=== PATIENT | female | born 1950 | race African-American/Black ===

== ENCOUNTER 2018-08-06 07:49 | Outpatient (CLI) | payer BC | END 2018-08-06 23:59 | disposition home or self-care (01) | LOC: D.MAMMO 07:49 | DX: Z12.31 Encounter for screening mammogram for malignant neoplasm of breast (principal) ==

== ENCOUNTER 2018-09-07 08:00 | Outpatient (CLI) | payer BC | END 2018-09-07 09:00 | disposition home or self-care (01) | LOC: D.MAMMO 08:00 | DX: R92.8 Other abnormal and inconclusive findings on diagnostic imaging of breast (principal) ==

== ENCOUNTER 2018-10-07 13:16 | Inpatient (IN) | payer MEDICARE, BC ==
[~2018-10-07] VITALS: Ht 167.6 cm; Wt 96.6 kg
[2018-10-07] MEDS ORDERED: NORVASC5 MG PO (14:13)
[2018-10-07] MEDS ORDERED: PRAVACHOL40 MG PO (14:14)
[2018-10-07] MEDS ORDERED: GLUCOPHAGE500 MG PO (14:15)
[2018-10-07] MEDS ORDERED: ARTHROTEC EC 71 EACH PO (14:17)
[2018-10-07 14:37] VITALS: BP 121/67
[2018-10-07 15:36] LABS: ANION GAP 14.4 mmol/L (8-16); CARBON DIOXIDE 26.4 mmol/L (21.0-32.0); CREATININE - SERUM 1.2 mg/dL (0.6-1.3); POTASSIUM - SERUM 3.8 mmol/L (3.5-5.1)
[2018-10-07 15:37] LABS: HEMATOCRIT 37.2 % (36.0-48.0); HEMOGLOBIN 12.9 g/dL (12-16); MCH 29.3 pg (26.0-34.0); MCHC 34.7 g/dL (31.0-37.0); MCV 84.4 fL (80.0-100.0); MEAN PLATELET VOLUME 9.5 fL (7.4-10.4); PLATELET COUNT 231 10x3/uL (130-400); RBC 4.41 10x6/uL (4.00-5.40); RDW 13.5 % (11.5-14.5); WBC 28.6 10x3/uL (4.8-10.8)
[2018-10-07 16:03] LABS: LYMPHOCYTES 10 % (15-50); MONOCYTES 9 % (2-11); NEUTROPHILS 79 % (40-80); PLATELET ESTIMATE NORMAL
--- NOTE | 2018-10-07 17:10 | HP ---
PATIENT: CECILY GANT MEDICAL RECORD: [id number] ACCOUNT: [id number] LOCATION:D.MS [id number] : 52 ADMISSION DATE: 10/07/18 PCP: CATINA KIRK MD HISTORY AND PHYSICAL EXAMINATION REASON FOR ADMISSION: Cough, fever, and chest pain. HISTORY OF PRESENT ILLNESS: The patient is a 68-year-old -[place] female with type 2 diabetes mellitus. She states about 4 days ago, she had onset of fever and cough. Cough has now been productive. She developing bilateral posterior back pain. No hemoptysis, mildly dyspnea on exertion. She is a nonsmoker and says she has not had night sweats. She came to the office and was noted to be febrile with temperature of 102.4, heart rate 131 beats per minute. Chest x-ray showing a right lower lobe infiltrate. She is now admitted for inpatient IV fluids, antibiotics, and pulmonary toilet. PAST MEDICAL HISTORY: Essential hypertension, postmenopausal, hyperlipidemia, osteoarthritis, type 2 diabetes mellitus. SURGICAL HISTORY: Hysterectomy, bilateral oophorectomy. ALLERGIES: None mentioned. FAMILY HISTORY: Father at 79 and cancer of the lung due to smoking. Mother at 97 due to her dementia. One sister in good health. SOCIAL HISTORY: She is . 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 She is a nonsmoker and nondrinker lifelong. Her is employed at [employer]. She did have flu vaccine and has had pneumonia vaccine in the past. CURRENT MEDICATIONS: Diclofenac 75 mg p.o. b.i.d. p.c., metformin 500 mg p.o. at bedtime, pravastatin 40 mg at bedtime, amlodipine 10, benazepril 20 one tablet in the morning. REVIEW OF SYSTEMS: CONSTITUTIONAL: Fatigue with fever for the last 4 days and poor appetite. HEENT: No recent visual change, sinus congestion, sore throat, or hearing difficulty. RESPIRATORY: Cough, now productive of yellow-green sputum, pleuritic type chest pain in her right upper and lower back for the last 4 days. She has mild short of breath on exertion, but not at rest. GASTROINTESTINAL: No nausea, vomiting, change in stools or blood per rectum. GENITOURINARY: No incontinence. GYNECOLOGIC: No vaginal bleeding. ENDOCRINE: Denies polyuria, polydipsia, heat or cold intolerance. NEUROLOGIC: No history of stroke, TIA, or vascular headaches or seizures. PHYSICAL EXAMINATION: VITAL SIGNS: Temperature of 102.4 orally. Heart rate 131 and regular, respirations were 20, blood pressure 130/80, sats 91% on room air. GENERAL: The patient feels mildly ill. She is not tachypneic. HEENT: Eyes are clear. Oropharynx unremarkable except for dry mucous membranes. NECK: Supple, without bruits or masses. CHEST: Clear throughout. HISTORY AND PHYSICAL [id number] CECILY GANT HEART: Tachycardic without murmur. ABDOMEN: Soft and nontender. PELVIC: Deferred. EXTREMITIES: No CC&E. Minimal crepitus in both knees with extension and flexion. NEUROLOGICAL: Oriented to person, place, and time. Cranial nerves intact. No motor or sensory deficits. Gait was not tested. LABORATORY DATA: Flu swab was negative. Lab is currently pending. IMAGING: Chest x-ray shows right lower lobe patchy density. ASSESSMENT: Right lower lobe community-acquired pneumonia, digital hypertension, tachycardia due to fever, diabetes mellitus, osteoarthritis, postmenopausal. PLAN: The patient will be admitted for IV antibiotics, IV fluids, pulmonary toilet updrafts and blood cultures. TRANSINT:[id number] Voice Confirmation ID: [id number] DOCUMENT ID: [id number] CATINA KIRK MD at 1710 CC: [id number] DICTATION DATE: 10/07/18 1300 DESTINATION SIGN REPAIRER: 10/07/18 1340 [place] [address]
[2018-10-07 17:21] LABS: APPEARANCE CLEAR (CLEAR); BILIRUBIN NEGATIVE (NEGATIVE); COLOR YELLOW (YELLOW); GLUCOSE 100 mg/dL (NEGATIVE); KETONE NEGATIVE (NEGATIVE); NITRITE NEGATIVE (NEGATIVE); PROTEIN 2+ mg/dL (NEGATIVE); UROBILINOGEN NORMAL (NORMAL)
[2018-10-07 17:22] LABS: BACTERIA MANY /hpf (NONE SEEN); EPITHELIAL CELLS OCC /hpf (0-5); MUCUS <1+ /lpf (NONE SEEN); RED CELLS - URINE 0-5 /hpf (0-5)
[2018-10-07 17:23] LABS: AMORPHOUS SEDIMENT <1+ /lpf (NONE SEEN)
--- NOTE | 2018-10-07 19:00 | NUR ---
PT IN BED IN LOW FOWLERS POSITION. FAMILY MEMBER AT BEDSIDE. ALERT AND ORIENTED X4. RESPIRATIONS EVEN AND UNLABORED. VITAL SIGNS STABLE AND AFEBRILE. NO VISUAL CUES OF DISTRESS NOTED. DENIES ANY OTHER NEEDS AT THIS TIME. BED LOW. SIDE RAILS UP X2. CALL LIGHT IN REACH. WILL CONTINUE TO MONITOR.
[2018-10-07 21:20] VITALS: BP 116/53
[2018-10-08 00:30] VITALS: BP 102/48
[2018-10-08 05:45] VITALS: BP 118/69
[2018-10-08 05:57] LABS: BASOPHILS 0.1 % (0-2); EOSINOPHILS 0.2 % (0-7); HEMATOCRIT 34.5 % (36.0-48.0); HEMOGLOBIN 11.7 g/dL (12-16); IMMATURE GRANULOCYTES 0.9 % (0-5); LYMPHOCYTES 10.4 % (15-50); MCH 28.5 pg (26.0-34.0); MCHC 33.9 g/dL (31.0-37.0); MCV 84.1 fL (80.0-100.0); MEAN PLATELET VOLUME 9.8 fL (7.4-10.4); MONOCYTES 9.1 % (2-11); NEUTROPHILS 79.3 % (40-80); PLATELET COUNT 233 10x3/uL (130-400); RDW 13.8 % (11.5-14.5)
[2018-10-08 06:03] LABS: WBC 19.9 10x3/uL (4.8-10.8)
[2018-10-08 06:29] LABS: ALBUMIN 2.4 g/dL (3.4-5.0); ANION GAP 13.7 mmol/L (8-16); BILIRUBIN - TOTAL 0.87 mg/dL (0.2-1.3); CALCIUM 8.6 mg/dL (8.5-10.1); CARBON DIOXIDE 23.4 mmol/L (21.0-32.0); CREATININE - SERUM 1.2 mg/dL (0.6-1.3); PROTEIN - SERUM 6.6 g/dL (6.4-8.2)
[2018-10-08 06:37] LABS: POTASSIUM - SERUM 3.1 mmol/L (3.5-5.1)
--- NOTE | 2018-10-08 10:49 | NUR ---
PATIENT UP AND IN BATHROOM TAKING BED BATH, SKIN W/D TO TOUCH. AT BEDSIDE. DENIES ANY C/O PAIN OR DISCOMFORT WHEN ASKED.
--- NOTE | 2018-10-08 11:25 | NUR ---
PATIENT BLOOD SUGAR CHECKED AND 222 4 UNITS INSULIN GIVEN IN RIGHT BACK ARM FRIENT AT BEDSIDE. C/L WITHIN REACH AND SR'S UP X'S 2.
[2018-10-08 12:45] VITALS: BP 116/74
[2018-10-08 12:50] VITALS: Ht 167.6 cm; Wt 96.6 kg
[2018-10-08 12:54] VITALS: BP 115/72
[2018-10-08 13:22] LABS: ANION GAP 11.6 mmol/L (8-16); CALCIUM 8.7 mg/dL (8.5-10.1); CARBON DIOXIDE 28.3 mmol/L (21.0-32.0); CREATININE - SERUM 1.1 mg/dL (0.6-1.3)
[2018-10-08 13:25] LABS: POTASSIUM - SERUM 3.9 mmol/L (3.5-5.1)
[2018-10-08 16:57] VITALS: BP 99/62
--- NOTE | 2018-10-08 20:10 | NUR ---
A&O X 3, AT BS. FSBS 137. REPORTED LOOSE BM AT 1999. ABDOMINAL PAIN REPORTED. ABDOMEN SOFT, NON TENDER TO PALPATION. BOWEL SOUNDS HYPERACTIVE X 4. ENCOURAGED FLUIDS, PT NODDED IN AGREEMENT. NO REPORT OF CHEST PAIN, LUNG SOUNDS ARE FAINT, BUT CLEAR. ENCOURAGED PT TO AMBULATE FREQUENTLY TOLERATED, CHANGE POSITIONS IN BED FREQUENTLY (1-2 HOURS) WHILE LYING DOWN, DEEP BREATHING INCREASING TOLERATED, AND COUGHING TO INPROVE RESPIRATORY STATUS.
[2018-10-08 20:25] VITALS: BP 102/63
[2018-10-09 00:14] VITALS: BP 121/74
--- NOTE | 2018-10-09 01:13 | NUR ---
Patient in bed resting with no s/s of distress resprations even and unlabored call light in reach family at bedside.
[2018-10-09 04:19] VITALS: BP 127/73
[2018-10-09 05:17] LABS: BASOPHILS 0.3 % (0-2); EOSINOPHILS 1.7 % (0-7); HEMATOCRIT 30.3 % (36.0-48.0); HEMOGLOBIN 10.1 g/dL (12-16); LYMPHOCYTES 21.9 % (15-50); MCH 28.3 pg (26.0-34.0); MCHC 33.3 g/dL (31.0-37.0); MCV 84.9 fL (80.0-100.0); MEAN PLATELET VOLUME 9.5 fL (7.4-10.4); MONOCYTES 12.1 % (2-11); PLATELET COUNT 257 10x3/uL (130-400); RBC 3.57 10x6/uL (4.00-5.40); RDW 13.7 % (11.5-14.5)
[2018-10-09 05:25] LABS: WBC 9.8 10x3/uL (4.8-10.8)
[2018-10-09 05:33] LABS: ANION GAP 15.3 mmol/L (8-16); CALCIUM 8.5 mg/dL (8.5-10.1)
[2018-10-09 05:43] LABS: POTASSIUM - SERUM 3.3 mmol/L (3.5-5.1)
[2018-10-09 08:45] VITALS: BP 154/73
[2018-10-09 12:45] VITALS: BP 138/78
--- NOTE | 2018-10-09 13:23 | NUR ---
SPECTRAL SCIENTIST NOTE-NO COMPLAINTS AT PRESENT. STATES IS FEELING BETTER THIS SHIFT. IS WANTING TO GO HOME IF POSSIBLE. WILL AWAIT DOC TO MAKE ROUNDS. CALL LIGHT IN REACH
[2018-10-09 16:00] VITALS: BP 138/80
--- NOTE | 2018-10-09 19:45 | NUR ---
RECEIVED REPORT, ASSUMED CARE, DENIES NEEDS, FAMILY AT BEDSIDE, CALL LIGHT IN REACH, NO S/S OF DISTRESS NOTED, BED LOWEST POSITION, PAGED DR JAY FOR COUGH SYRUP, PT STATES SHE CAN'T STOP COUGHING, WILL CONTINUE POC
[2018-10-09 20:00] VITALS: BP 134/70
[2018-10-10] VITALS: BP 130/67; BP 151/70
[2018-10-10 03:00] VITALS: BP 128/59
--- NOTE | 2018-10-10 04:01 | NUR ---
PT RESTING QUIETLY, EYES CLOSED. RESP EVEN, UNLABORED. NO DISTRESS NOTED. AGREE WITH INDUCTION HEATING EQUIPMENT SETTER'S ASSESSMENT, CONTINUE PLAN OF CARE.
--- NOTE | 2018-10-10 08:16 | NUR ---
PT AAOX4 RESP EVEN AND NONLABORED, NO SIGNS OF DISTRESS NOTED, FAMILY AT BEDSIDE, NO QUESTIONS/CONCERNS EXPRESSED, CL IN REACH
[2018-10-10 08:37] VITALS: BP 147/97
[2018-10-10 12:30] VITALS: BP 165/89
--- NOTE | 2018-10-10 13:51 | NUR ---
PATIENT SITTING UP IN CHAIR WITH NO COMPLAINTS AT THIS TIME. DENIES ANY NEEDS OR CONCERNS. IV INTACT. CALL LIGHT WITHIN REACH.
[2018-10-10 16:50] VITALS: BP 162/87
--- NOTE | 2018-10-10 17:58 | NUR ---
PT AAOX4 RESP EVEN AND NONLABORED, NO SIGNS OF DISTRESS NOTED, FAMILY AT BEDSIDE CL IN REACH
--- NOTE | 2018-10-10 19:25 | NUR ---
RECEIVED REPROT, ASSUMED CARE, A&O, FAMILY AT BEDSIDE, DENIES NEEDS, BED LOWEST POSITION, CALL LIGHT IN REACH, NO S/S OF DISTRESS NOTED, WILL CONTINUE POC
[2018-10-10 20:00] VITALS: BP 154/92
--- NOTE | 2018-10-10 20:30 | NUR ---
PT AND FAMILY WALKING AROUND UNIT, NO S/S OF DISTRESS NOTED
[2018-10-11] VITALS: BP 156/86
[2018-10-11 03:00] VITALS: BP 119/61
--- NOTE | 2018-10-11 03:40 | NUR ---
AWAKE. LYING IN BED. DENIES NEEDS. NO DISTRESS. CL IN REACH.
--- NOTE | 2018-10-11 07:56 | NUR ---
PT AAOX4 RESP EVEN AND NONLABORED, NO SIGNS OF DISTRESS NOTED, REQUSTING SOME ICE WATER BROUGHT TO PT AT THIS TIME, CL IN REACH
[2018-10-11 08:24] VITALS: BP 181/90
[2018-10-11 12:30] VITALS: BP 130/73; BP 147/87
[2018-10-11 16:30] VITALS: BP 166/92
--- NOTE | 2018-10-11 18:46 | NUR ---
LINOLEUM PRINTER NOTE: AAOX4. O2 SATS 97%. NO SOB. NO S/S OF ACUTE DISTRESS. CL IN PLACE.
[2018-10-11 20:00] VITALS: BP 159/76
[2018-10-12] VITALS: BP 148/67
[2018-10-12 03:00] VITALS: BP 130/56
[2018-10-12] MEDS ORDERED: ZITHROMAX250 MG PO (07:38)
[2018-10-12] MEDS ORDERED: GLUCOPHAGE500 MG PO (07:39)
[2018-10-12] MEDS ORDERED: ROBITUSSIN DM 110 ML PO (07:40)
[2018-10-12] MEDS ORDERED: LEVAQUIN750 MG PO (07:41)
--- NOTE | 2018-10-12 08:10 | NUR ---
PT SITTING UP ON SIDE OF BED. NO ACUTE DISTRESS NOTED. REPORTS PAIN 5/10 AT THIS TIME, TO BACK AREA. SALINE LOCK TO RIGHT FOREARM INTACT. SITE WITHOUT REDNESS OR EDEMA. PT DENIES FURTHER NEEDS AT THIS TIME. CL WITHIN REACH. ENCOURAGED TO CALL WITH NEEDS. WILL CONTINUE TO MONITOR.
[2018-10-12 08:28] VITALS: BP 165/84
--- NOTE | 2018-10-12 09:13 | MORECARE ---
CASE MANAGEMENT DISCHARGE SUMMARY PATIENT: CECILY GANT KAYLIN UNIT: [id number] ADM DATE: 10/07/18 AGE: 68 : 51 SEX: F ROOM/BED: D.2233 AUTHOR: JENNY RODARTE PHYSICIAN: REFERRING PHYSICIAN: CATINA DANIELS MD DATE OF SERVICE: 10/12/18 Discharge Plan Patient Name: CECILY GANT Facility: [facility]:[place] : 1950 Planned Disposition: Home Anticipated Discharge Date: 10/12/18 Discharge Date: Expected LOS: 5 Initial Reviewer: [email or web address] Initial Review Date: 10/12/2018 Generated: 10/12/18 10:13 am Comments DCP- Discharge Planning Updated by [email or web address]: Hollie Rodriguez on 10/12/18 8:[address] Patient Name: CECILY GANT Admission Status: Urgent Accout number: [id number] Admission Date: 10-07-2018 : 1950 Admission Diagnosis:COUGH Attending: CATINA DANIELS Current LOS: 5 Anticipated DC Date: 10-12-2018 Planned Disposition: Home Primary Insurance: MEDICARE PART A ONLY Discharge Planning Comments: CM met with patient to discuss discharge planning, she is alone in the room. States she lives with her . States she is independent with all ADL's and IADL's. States she does not have or need any DME or HHS. States her will take her home today on discharge. No needs identified. CM will continue to follow and assist with discharge planning/needs. Telephony Engineer: Hollie Rodriguez DCPIA - Discharge Planning Initial Assessment Updated by [email or web address]: Hollie Rodriguez on 10/12/18 9:11 am * Is the patient Alert and Oriented? Yes * How many steps to enter\exit or inside your home? few/0 * PCP Dr. Daniels * [facility] [address] * Preadmission Environment Home with Family * ADLs Independent * Equipment None * List name and contact numbers for known caregivers / representatives who currently or will assist patient after discharge: [facility] - [phone] * Verbal permission to speak to the caregivers and representatives has been obtained from the patient. Yes * Community resources currently utilized None * Additional services required to return to the preadmission environment? No * Can the patient safely return to the preadmission environment? Yes * Has this patient been hospitalized within the prior 30 days at any hospital? 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
--- NOTE | 2018-10-12 09:45 | NUR ---
SALINE LOC D/C'D FROM RIGHT FOREARM, PENDING D/C. CATH TIP INTACT. PT SHAVONNE WELL
--- NOTE | 2018-10-13 12:13 | MORECARE ---
CASE MANAGEMENT DISCHARGE SUMMARY PATIENT: CECILY GANT KAYLIN UNIT: [id number] ADM DATE: 10/07/18 AGE: 68 : 51 SEX: F ROOM/BED: D.2233 AUTHOR: JENNY RODARTE PHYSICIAN: REFERRING PHYSICIAN: CATINA DANIELS MD DATE OF SERVICE: 10/13/18 Discharge Plan Patient Name: CECILY GANT Facility: [facility]:[place] : 1950 Planned Disposition: Home Anticipated Discharge Date: 10/12/18 Discharge Date: 10/12/2018 Expected LOS: 5 Initial Reviewer: [email or web address] Initial Review Date: 10/12/2018 Generated: 10/13/18 1:13 pm Comments DCP- Discharge Planning Updated by [email or web address]: Hollie Rodriguez on 10/12/18 8:[address] Patient Name: CECILY GANT Admission Status: Urgent Accout number: [id number] Admission Date: 10-07-2018 : 1950 Admission Diagnosis:COUGH Attending: CATINA DANIELS Current LOS: 5 Anticipated DC Date: 10-12-2018 Planned Disposition: Home Primary Insurance: MEDICARE PART A ONLY Discharge Planning Comments: CM met with patient to discuss discharge planning, she is alone in the room. States she lives with her . States she is independent with all ADL's and IADL's. States she does not have or need any DME or HHS. States her will take her home today on discharge. No needs identified. CM will continue to follow and assist with discharge planning/needs. Orthopedic Physician Assistant: Hollie Rodriguez DCPIA - Discharge Planning Initial Assessment Updated by [email or web address]: Hollie Rodriguez on 10/12/18 9:11 am * Is the patient Alert and Oriented? Yes * How many steps to enter\exit or inside your home? few/0 * PCP Dr. Daniels * [facility] [address] * Preadmission Environment Home with Family * ADLs Independent * Equipment None * List name and contact numbers for known caregivers / representatives who currently or will assist patient after discharge: [facility] - [phone] * Verbal permission to speak to the caregivers and representatives has been obtained from the patient. Yes * Community resources currently utilized None * Additional services required to return to the preadmission environment? No * Can the patient safely return to the preadmission environment? Yes * Has this patient been hospitalized within the prior 30 days at any hospital? No Coverage Notice Reviewer: [email or web address] Slime Rodriguez Notice Issued Date-Time: 10/12/2018 9:08 Notice Type: IM Discharge Notice Notice Delivered To: Patient Relationship to Patient: Self Sales Representative [employer] Name: Delivery Method: HAND - Hand Delivered Justyna Days: Prior Verbal Notification: Recipient Understood Notice: Yes Recipient Signature: Yes Med Rec Note Co-signed by Attending: Coverage Notice Comment: IMM explained, signed, given, copy placed in MR Last DP export: 10/12/18 8:13 a Patient Name: CECILY GANT Page [id number] at 1213 All edits/amendments must be made on the electronic document DICTATION DATE: 10/13/18 1213 CERTIFIED REGISTERED NURSE PRACTITIONER: ESHA 10/13/18 1213 RPT#: [id number] DC DATE:10/12/18 STATUS: DIS IN [facility] [address] [place] [address] END OF REPORT
== END 2018-10-12 10:34 | disposition home or self-care (01) | DRG 195 ==
LOC: D.MS 13:16 → D.SDCHOLD 13:16 → D.MS 13:30
PROVIDERS: ADMIT Family Medicine
DX: J18.1 Lobar pneumonia, unspecified organism (principal); I10 Essential (primary) hypertension; R00.0 Tachycardia, unspecified; E11.9 Type 2 diabetes mellitus without complications; N95.9 Unspecified menopausal and perimenopausal disorder; M19.90 Unspecified osteoarthritis, unspecified site

== ENCOUNTER 2019-03-09 10:00 | Outpatient (CLI) | payer BC ==
[2018-10-08 12:50] VITALS: BMI 34.3
[~2019-03-09 10:00] MED LIST: ARTHROTEC EC 71 EACH PO; GLUCOPHAGE500 MG PO; LEVAQUIN750 MG PO; NORVASC5 MG PO; PRAVACHOL40 MG PO; ROBITUSSIN DM 110 ML PO; ZITHROMAX250 MG PO
== END 2019-03-09 11:00 | disposition home or self-care (01) ==
LOC: D.MAMMO 10:00
PROVIDERS: ATTEND Family Medicine
DX: R92.8 Other abnormal and inconclusive findings on diagnostic imaging of breast (principal)

== ENCOUNTER 2019-08-09 08:00 | Outpatient (CLI) | payer BC ==
[2018-10-08 12:50] VITALS: BMI 34.3
== END 2019-08-09 23:59 | disposition home or self-care (01) ==
LOC: D.MAMMO 08:00
PROVIDERS: ATTEND Family Medicine
DX: R92.8 Other abnormal and inconclusive findings on diagnostic imaging of breast (principal)

== ENCOUNTER 2020-02-09 09:00 | Outpatient (CLI) | payer BC ==
[2018-10-08 12:50] VITALS: BMI 34.3
== END 2020-02-09 10:00 | disposition home or self-care (01) ==
LOC: D.MAMMO 09:00
PROVIDERS: ATTEND Family Medicine
DX: R92.8 Other abnormal and inconclusive findings on diagnostic imaging of breast (principal)